=== PATIENT | male | born 1985 | race Caucasian/White ===

== ENCOUNTER 2017-10-08 17:40 | Emergency (ER) | payer BC ==
[~2017-10-08] VITALS: Ht 177.8 cm; Wt 61.9 kg
[2017-10-08 20:37] LABS: ADD MIUA? YES; BILIRUBIN NEGATIVE; BLOOD NEGATIVE; COLOR AMBER ((YELLOW)); GLUCOSE (STRIP) NEGATIVE; KETONES 20; LEUKOCYTES NEGATIVE; NITRITE NEGATIVE; PROTEIN (STRIP) 30; SPECIFIC GRAVITY 1.031 (1.000-1.030); UROBILINOGEN 0.2 MG/DL (0.2-1.0)
[2017-10-08 20:56] LABS: BACTERIA NONE SEEN /HPF; EPITHELIAL CELLS NONE SEEN /HPF; MUCUS 4+ /LPF; RED BLOOD CELLS 0-5 /HPF (0-5); UNCLASSIFIED CRYSTALS 1+ /HPF; WHITE BLOOD CELLS 0-5 /HPF (0-5)
[2017-10-08] MEDS ORDERED: LIDODERM 5% P1 PATCH TD (21:08)
[2017-10-08] MEDS ORDERED: ROBAXIN500 MG PO (21:08)
[2017-10-08] MEDS ORDERED: MOTRIN600 MG PO (21:08)
[2017-10-08 21:15] VITALS: BP 118/65
== END 2017-10-08 21:16 | disposition home or self-care (01) ==
LOC: EME 17:40 → RME 17:40
PROVIDERS: Physician Assistant Medical
DX: M54.5 Low back pain (principal); R05 Cough; R15.9 Full incontinence of feces; F17.200 Nicotine dependence, unspecified, uncomplicated
CPT/HCPCS: 72100; 81003